=== PATIENT | male | born 1990 | race Caucasian/White ===

== ENCOUNTER 2016-12-10 23:22 | Emergency (ER) | payer SELFPAY ==
[~2016-12-10] VITALS: Ht 190.5 cm; Wt 59.0 kg
[2016-12-10 23:23] VITALS: BP 138/85; PULSE 75; RESP 18; TEMP 97.6; O2SAT 100
[2016-12-10 23:47] VITALS: BP 129/80; PULSE 82; RESP 16; O2SAT 98
[2016-12-11] MEDS ORDERED: SODIUM CHLORIDE 0.9% FLUSH 10 ML FLUSH IVF PRN
[2016-12-11] MEDS ORDERED: methylPREDNISolone SOD SUCC 125 MG/2 ML VIAL IVP ONE
[2016-12-11] MEDS: RESP: ALBUTEROL 2.5 MG/IPRATROPIUM 0.5 MG NEB (SCH) INH (00:12)
--- NOTE | 2016-12-11 00:20 | RADRPT ---
EXAM DATE/TIME: 12/10/2016 23:55 [place] COMPARISON: No previous studies available for comparison. INDICATIONS : Short of breath. MEDICAL HISTORY : None. SURGICAL HISTORY : None. ENCOUNTER: Initial ACUITY: 1 day PAIN SCORE: 0/10 LOCATION: Bilateral chest FINDINGS: A single view of the chest demonstrates the lungs to be symmetrically aerated without evidence of mas s, infiltrate or effusion. The cardiomediastinal contours are unremarkable. Osseous structures are intact. CONCLUSION: No evidence of acute cardiopulmonary disease. Reza Whiteside MD on December 11, 2016 at 0:18 Board Certified Radiologist. This report was verified electronically.
[2016-12-11 00:25] LABS: AUTOMATED NEUTROPHIL # 22.3 TH/MM3 (1.8-7.7); BASOPHIL # 0.1 TH/MM3 (0-0.2); BASOPHIL % 0.2 % (0.0-2.0); EOSINOPHIL # 0.1 TH/MM3 (0-0.4); EOSINOPHIL % 0.5 % (0.0-4.0); HEMO FLAGS DIFF FINAL; LYMPH % 8.6 % (9.0-44.0); LYMPHOCYTE # 2.3 TH/MM3 (1.0-4.8); MEAN CELL VOLUME 89.8 FL (80.0-100.0); MEAN CORPUSCULAR HEMOGLOBIN 30.7 PG (27.0-34.0); MEAN CORPUSCULAR HGB CONC 34.2 % (32.0-36.0); MONO % 6.2 % (0.0-8.0); NEUT % 84.5 % (16.0-70.0); PLATELET COUNT 220 TH/MM3 (150-450); RED BLOOD COUNT 5.12 MIL/MM3 (4.50-5.90); RED CELL DISTRIBUTION WIDTH 12.4 % (11.6-17.2); WHITE BLOOD COUNT 26.5 TH/MM3 (4.0-11.0)
--- NOTE | 2016-12-11 00:28 | PD ---
HPI Chief Complaint: Chest Pain Time Seen by Provider: 23:31 Travel History International Travel<30 days: No Contact w/Intl Traveler<30days: No Traveled to known affect area: No History of Present Illness HPI The patient is a 26 year old male who presents to the [facility] emergency department with a history of shortness of breath and chest pain along the left anterior chest wall that began approximately an hour and half prior to arrival. The patient reports that he does have a history of emphysema. He reports that he has not had a rescue inhaler recently as he has not had any exacerbations for the last year and a half. The patient denies having a primary care physician. The patient reports that he continues to smoke a pack of cigarettes per day. The patient denies having any fevers, worsening cough, or congestion. The patient reports that the chest pain that he is experiencing is along the left chest wall at the sternal border. He denies having any trauma to the area. He denies doing any heavy lifting. On review of systems, the patient denies any neck pain, abdominal pain, vomiting, diarrhea, urinary symptoms, or neurologic symptoms. [facility] Past Medical History Narrative Medical The patient's past medical history is significant for emphysema. Respiratory: Yes (EMPHYSEMA) Tetanus Vaccination: Never Vaccinated Influenza Vaccination: No Past Surgical History Narrative Surgical The patient denies any past surgical history. Social History Alcohol Use: Yes (3-4 times per week, one drink) Tobacco Use: Yes (one pack per day) Substance Use: No Allergies-Medications (Allergen,Severity, Reaction): Coded Allergies: No Known Allergies (Unverified , 12/10/16) Reported Meds & Prescriptions Reported Meds & Active Scripts Active No Active Prescriptions or Reported Medications Review of Systems Except as stated in HPI: all other systems reviewed are Neg General / Constitutional: No: Fever Eyes: No: Visual changes HENT: No: Headaches Cardiovascular: Positive: Chest Pain or Discomfort, Dyspnea on exertion Respiratory: Positive: Cough, Shortness of Breath Gastrointestinal: No: Abdominal Pain Genitourinary: No: Dysuria Musculoskeletal: No: Pain Skin: No Rash Neurologic: No: Weakness Psychiatric: No: Depression Endocrine: No: Polydipsia Hematologic/Lymphatic: No: Easy Bruising Physical Exam Narrative General: The patient is a well-developed thin appearing male in no acute distress. Head and Neck exam: Head is normocephalic atraumatic. Eyes: EOMI, pupils are equal round and reactive to light. Nose: Midline septum with pink mucous membranes Mouth: Dentition unremarkable. Moist mucus membranes. Posterior oropharynx is not erythematous. No tonsillar hypertrophy. Uvula midline. Airway patent. Neck: No palpable lymphadenopathy. No nuchal rigidity. No thyromegaly. Cardiovascular: Regular rate and rhythm without murmurs, gallops, or rubs. Lungs: The patient is splinting his breathing. The patient has decreased breath sounds at the bases. Clear to auscultation bilaterally. No wheezes, rhonchi, or rales. Abdomen: Soft, without tenderness to palpation in all 4 quadrants of the abdomen. No guarding, rebound, or rigidity. Normal bowel sounds are audible. No tenderness on palpation of McBurney's point. Negative [place] sign. Extremities: No clubbing, cyanosis, or edema. 2+ pulses in all 4 extremities. No calf tenderness on palpation. Back: No spinous process tenderness to palpation. No costovertebral angle tenderness to palpation. Neurologic Exam: Grossly nonfocal. Skin Exam: No rash noted. Intact skin that is warm and dry. Data Data Last Documented VS Vital Signs Date Time Temp Pulse Resp B/P Pulse Ox O2 Delivery O2 Flow Rate FiO2 12/10/16 23:47 82 16 129/80 98 Room Air 12/10/16 23:23 97.6 Orders Complete Blood Count With Diff (12/10/16:53) Comprehensive Metabolic Panel (12/10/16:53) B-Type Natriuretic Peptide (12/10/16:53) D-Dimer (12/10/16:53) Act Partial Throm Time (Ptt) (12/10/16:53) Prothrombin Time / Inr (Pt) (12/10/16:53) Magnesium (Mg) (12/10/16:53) Ckmb (Isoenzyme) Profile (12/10/16) Troponin I (12/10/16:) Urinalysis - C+S If Indicated (12/10/16:53) Iv Access Insert/Monitor (12/10/16:53) Electrocardiogram (12/10/16:53) Ecg Monitoring (12/10/16) Oximetry (7/11/17 23:53) Oxygen Administration (12/10/16 23:53) Chest, Single Ap (12/10/16 23:53) Sodium Chloride 0.9% Flush (Ns Flush) (12/11/16 00:00) Methylprednisolone So Succ Inj (Solumedr (12/11/16 00:00) Albuterol-Ipratropium Neb (Duoneb Neb) (12/11/16 00:00) Westergren Sedimentation Rate (12/10/16 23:53) Thyroid Stimulating Hormone (12/10/16 23:53) Drug Screen, Random Urine (12/10/16 23:53) Alcohol (Ethanol) (12/10/16 23:53) CKMB (12/11/16 00:00) CKMB% (12/11/16 00:00) Ceftriaxone Inj (Rocephin Inj) (12/11/16 02:00) Azithromycin Inj (Zithromax Inj) (12/11/16 02:00) Labs Laboratory Tests Test 12/11/16 12/11/16 00:00 01:35 White Blood Count 26.5 TH/MM3 Red Blood Count 5.12 MIL/MM3 Hemoglobin 15.7 GM/DL Hematocrit 46.0 % Mean Corpuscular Volume 89.8 FL Mean Corpuscular Hemoglobin 30.7 PG Mean Corpuscular Hemoglobin 34.2 % Concent Red Cell Distribution Width 12.4 % Platelet Count 220 TH/MM3 Mean Platelet Volume 10.1 FL Neutrophils (%) (Auto) 84.5 % Lymphocytes (%) (Auto) 8.6 % Monocytes (%) (Auto) 6.2 % Eosinophils (%) (Auto) 0.5 % Basophils (%) (Auto) 0.2 % Neutrophils # (Auto) 22.3 TH/MM3 Lymphocytes # (Auto) 2.3 TH/MM3 Monocytes # (Auto) 1.7 TH/MM3 Eosinophils # (Auto) 0.1 TH/MM3 Basophils # (Auto) 0.1 TH/MM3 CBC Comment DIFF FINAL Differential Comment Erythrocyte Sedimentation Rate 1 mm/hr Prothrombin Time 10.8 SEC Prothromb Time International 1.0 RATIO Ratio Activated Partial 27.1 SEC Thromboplast Time D-Dimer Quantitative (PE/DVT) LESS THAN 0.19 MG/L FEU Sodium Level 138 MEQ/L Potassium Level 4.2 MEQ/L Chloride Level 103 MEQ/L Carbon Dioxide Level 27.1 MEQ/L Anion Gap 8 MEQ/L Blood Urea Nitrogen 5 MG/DL Creatinine 0.86 MG/DL Estimat Glomerular Filtration 107 ML/MIN Rate Random Glucose 99 MG/DL Calcium Level 9.3 MG/DL Magnesium Level 1.8 MG/DL Total Bilirubin 0.8 MG/DL Aspartate Amino Transf 14 U/L (AST/SGOT) Alanine Aminotransferase 22 U/L (ALT/SGPT) Alkaline Phosphatase 88 U/L Total Creatine Kinase 102 U/L Creatine Kinase MB LESS THAN 0.5 NG/ML Troponin I LESS THAN 0.02 NG/ML B-Type Natriuretic Peptide 8 PG/ML Total Protein 7.0 GM/DL Albumin 4.1 GM/DL Thyroid Stimulating Hormone 2.170 uIU/ML 3rd Gen Ethyl Alcohol Level LESS THAN 3 MG/DL Urine Color LIGHT-YELLOW Urine Turbidity CLEAR Urine pH 6.5 Urine Specific [place] 1.004 Urine Protein NEG mg/dL Urine Glucose (UA) NEG mg/dL Urine Ketones NEG mg/dL Urine Occult Blood NEG Urine Nitrite NEG Urine Bilirubin NEG Urine Urobilinogen LESS THAN 2.0 MG/DL Urine Leukocyte Esterase NEG Urine WBC 1 /hpf Microscopic Urinalysis Comment CULT NOT INDICATED Urine Opiates Screen NEG Urine Barbiturates Screen NEG Urine Amphetamines Screen NEG Urine Benzodiazepines Screen NEG Urine Cocaine Screen NEG Urine Cannabinoids Screen POS MDM Medical Decision Making Medical Screen Exam Complete: Yes Emergency Medical Condition: Yes Medical Record Reviewed: Yes Interpretation(s) Last Impressions Chest X-Ray 12/10/16 2953 Signed Impressions: Service Date/Time: Saturday, December 10, 2016 23:55 - CONCLUSION: No evidence of acute cardiopulmonary disease. Reza Whiteside MD Differential Diagnosis COPD exacerbation, versus pneumonia, versus pneumothorax, versus pulmonary embolism Narrative Course During the course of the patients emergency department visit, the patients history, examination, and differential diagnosis were reviewed with the patient. The patient had IV access obtained and blood work sent for analysis. The patient was placed on a director of cardiac cath lab with oximetry and blood pressure monitoring. A chest x-ray was ordered. The patient was initially provided DuoNeb 3, Solu-Medrol 125 mg IV. The patients laboratory studies were reviewed and remarkable for a white count of 26.5, hemoglobin 15.7, platelets 220, neutrophils 84.5, lymphocytes 8.6, sedimentation rate is 1. CMP is remarkable for a BUN of 5, AST 14, CPK 102, troponin I less than 0.02, BNP is 8, TSH 2.17. PT PTT within normal limits, d- dimer less than 0.19 decreased the likelihood of PE in this patient with no other significant risk factors. Urine drug screen is positive for cannabinoids. Alcohol level is less than 3, urinalysis is unremarkable. Radiology studies were reviewed and remarkable for a chest x-ray that shows no evidence of acute cardiopulmonary disease. That given the patient's history of emphysema and elevated white count with reported cough, the patient will be treated with antibiotics for bronchitis. The patient was given Rocephin and Zithromax IV. The patient will be discharged home with Ceftin, Zithromax to complete a Z-Chago, Medrol Dosepak taper , and pro-air inhaler. The patient is resting comfortably and feels better, is alert and in no distress. The patients results and examination findings were discussed with the patient. The repeat examination is unremarkable and benign. The history, exam, diagnostic testing, and current condition do not suggest any significant pathology to warrant further testing, continued ED treatment, admission, or surgical evaluation at this point. The vital signs have been stable. The patient does not have uncontrollable pain, intractable vomiting, or other significant symptoms. The patient's condition is stable and appropriate for discharge. The patient will pursue further outpatient evaluation with a primary care physician or other designated or consulting physician as indicated in the discharge instructions. The patient expressed understanding and was agreeable with this plan. Diagnosis Primary Impression: COPD exacerbation Additional Impression: Bronchitis Referrals: Katey Flak MD 2 days [facility] 2 days Patient Instructions: Acute Bronchitis (ED), COPD (Chronic Obstructive Pulmonary Disease) (ED), General Instructions Med/Other Pt SpecificInfo: Prescription(s) given Scripts Albuterol Powder Inh (Proair Respiclick Inh)90 Mcg/Act Aerp2 Puff INH Q4-6H PRN (SHORTNESS OF BREATH) #1 INHALER Ref 0 Prov:Valeria Dai MD 12/11/16 Azithromycin 250 Mg [id number] Mg PO DAILY #4 TAB Ref 0 Prov:Valeria Dai MD 12/11/16 Cefuroxime 500 Mg [id number] Mg PO BID 10 Days Ref 0 Prov:Valeria Dai MD 12/11/16 Methylprednisolone Dosepak (Medrol Dosepak)4 Mg Dspk4 Mg PO DIRECTED #1 DSPK Ref 0 Per Pharmacist direction Prov:Valeria Dai MD 12/11/16 Disposition: 01 DISCHARGE HOME Condition: Stable Valeria Dai MD Dec 11, 2016 00:28
[2016-12-11 00:43] LABS: APTT (PATIENT) 27.1 SEC (24.3-30.1); PROTHROMBIN TIME - PATIENT 10.8 SEC (9.8-11.6)
[2016-12-11 00:49] LABS: ANION GAP 8 MEQ/L (5-15); AST (GOT) 14 U/L (15-37); BICARBONATE 27.1 MEQ/L (21.0-32.0); BLOOD UREA NITROGEN 5 MG/DL (7-18); CHLORIDE 103 MEQ/L (98-107); GLOMERULAR FILTRATION RATE 107 ML/MIN (>89); MAGNESIUM 1.8 MG/DL (1.5-2.5); POTASSIUM 4.2 MEQ/L (3.5-5.1); SODIUM (NA) 138 MEQ/L (136-145)
[2016-12-11 00:50] LABS: ALT (GPT) 22 U/L (12-78)
[2016-12-11 01:00] LABS: ALKALINE PHOSPHATASE 88 U/L (45-117); CREATINE KINASE 102 U/L (39-308); TOTAL BILIRUBIN ADULT 0.8 MG/DL (0.2-1.0)
[2016-12-11 01:12] LABS: CKMB LESS THAN 0.5 NG/ML (0.5-3.6)
[2016-12-11] MEDS ORDERED: AZITHROMYCIN INJ 500 MG in SODIUM CHLOR 0.9% 250 ML INJ 250 ML IV ONE (02:00)
[2016-12-11] MEDS ORDERED: cefTRIAXone INJ 1,000 MG in SODIUM CHLORIDE 0.9% INJ 100 ML IV ONE (02:00)
[2016-12-11 02:02] LABS: BLOOD, URINE NEG (NEG); GLUCOSE,URINE NEG (NEG); KETONE, URINE NEG (NEG); NITRITE,URINE NEG (NEG); PH, URINE 6.5 (5.0-8.5); URINE COLOR LIGHT-YELLOW (YELLW/STRAW)
[2016-12-11 02:09] LABS: AMPHETAMINE, URINE NEG (NEG); BARBITURATES, URINE NEG (NEG); COCAINE, URINE NEG (NEG); COMMENT (UR) CULT NOT INDICATED; CULTURE IF INDICATED CULT NOT INDICATED
[2016-12-11] MEDS ORDERED: AZIT250T3 PO (02:51)
[2016-12-11] MEDS ORDERED: CEFU1TAB20 PO (02:51)
[2016-12-11] MEDS ORDERED: ALBU1AER5 INH (02:51)
[2016-12-11] MEDS ORDERED: MEDR4PAK PO (02:51)
--- NOTE | 2016-12-11 11:05 | EKG ---
Date Performed: 12/10/2016 Time Performed: 23:39:47 PTAGE: 26 years EKG: Sinus rhythm NORMAL ECG NO PREVIOUS TRACING DOCTOR: Jameel Machado Interpretating Date/Time 12/11/2016 11:04:41
== END 2016-12-11 03:29 | disposition home or self-care (01) ==
LOC: NEPE 23:22
DX: J44.1 Chronic obstructive pulmonary disease with (acute) exacerbation (principal); J40 Bronchitis, not specified as acute or chronic; F17.210 Nicotine dependence, cigarettes, uncomplicated
CPT/HCPCS: 71010; 80053; 80307; 81001; 82550; 82552; 83735; 83880; 84443; 84484; 85025; 85379; 85610; 85652; 85730; 93005; 94640; 94664; 96374; 96375; 99285; J0456; J0696; J2930; J7050